=== PATIENT | female | born 1965 | race Caucasian/White ===

== ENCOUNTER → 2016-09-25 | Outpatient (CLI) | payer OTHER ==
[2015-04-15 11:07] VITALS: BP 120/75
[~2016-09-25] MED LIST: HYDR-971 PO; IBUP200T43 PO
--- NOTE | 2016-09-25 15:40 | RAD ---
DATE: 09/25/2016 EXAM: MAMMO TASHIA DIAG LT, BREAST LEFT HISTORY: Follow-up left breast nodules. COMPARISON: 05/02/2016 This study was interpreted with the benefit of Computerized Aided Detection (CAD). FINDINGS: MLO and CC digital mammograms of the left breast were obtained. Additionally digital breast tomosynthesis in the CC and MLO projections of the left breast was performed. Comparison study is dated 05/02/2016. The left breast parenchyma is heterogeneously dense which can obscure a lesion on mammography (breast density code C). The 1.5 cm mass within the upper outer quadrant left breast has decreased in size on today's study. A 8 mm mass is seen within the retroareolar region left breast which is unchanged. No new dominant mass is seen. A real-time ultrasound examination of the left breast performed at the 3:00 position and the retroareolar region was performed. Multiple images were obtained. Comparison study is dated 05/02/2016. A 8 mm simple cyst is seen within the retroareolar region of the left breast which is unchanged. A 3 mm simple cyst is seen at the 3:00 position which has decreased in size since previous examination where it measure 1.3 cm in size. No solid mass is seen. IMPRESSION: Simple cysts are seen within the left breast. The cyst at the 3:00 position has decreased in size significantly since the previous examination. No solid mass is seen. I would recharacterize the patient's mammograms as a BI-RADS Category 2 benign findings with a recommendation for routine yearly screening mammography for follow-up. BI-RADS CATEGORY: 1 NEGATIVE RECOMMENDED FOLLOW-UP: 12M 12 MONTH FOLLOW-UP PQRS compliance statement: Patient information was entered into a reminder system with a target due date 05/02/2017 for the next mammogram. Mammography is a sensitive method for finding small breast cancers, but it does not detect them all and is not a substitute for careful clinical examination. A negative mammogram does not negate a clinically suspicious finding and should not result in delay in biopsying a clinically suspicious abnormality. "Our facility is accredited by the [employer] Mammography [employer]."
== END | disposition home or self-care (01) ==
LOC: MAMMO 13:19
PROVIDERS: ATTEND Family Medicine
DX: N63 Unspecified lump in breast (principal)
CPT/HCPCS: 76641; G0206; G0279; 77061; 77065

== ENCOUNTER → 2018-03-12 | Outpatient (CLI) | payer OTHER ==
[2015-04-15 11:07] VITALS: BP 120/75
[~2018-03-12] MED LIST changes: +HYDR-3165 PO; -HYDR-971 PO; -IBUP200T43 PO; +IBUP200T44 PO
--- NOTE | 2018-03-12 10:32 | RAD ---
DATE: 03/12/2018 EXAM: MAMMO TASHIA ROBERT BENAVIDES, BREAST BILATERAL HISTORY: Breast pain COMPARISON: 09/25/2016, 05/02/2016 This study was interpreted with the benefit of Computerized Aided Detection (CAD). Breast Density: HETERO The breast parenchyma is heterogenously dense, which could reduce sensitivity of mammography. Breast parenchyma level C. Findings: 2-D and 3-D tomosynthesis imaging was performed in CC and MLO projections. A small retroareolar nodule seen on the previous study has regressed. No new or enlarging breast densities are seen. No spiculated mass or architectural distortion is evident. No suspicious microcalcifications are seen. Left breast ultrasound, 03/12/2018: History: Left lateral breast pain A targeted ultrasound exam of the lateral aspect of the left breast was performed to include the area of reported pain. Heterogeneous fibroglandular shadows are present. At the 7:00 location there is a 5 mm simple cyst. No solid mass or other unusual fluid collection is seen. IMPRESSION: 1. There is no mammographic evidence of malignancy in either breast. 2. The targeted ultrasound exam of the lateral left breast demonstrates a simple cyst. BI-RADS CATEGORY: 2 BENIGN FINDING(S) RECOMMENDED FOLLOW-UP: 12M 12 MONTH FOLLOW-UP PQRS compliance statement: Patient information was entered into a reminder system with a target due date for the next mammogram. Mammography is a sensitive method for finding small breast cancers, but it does not detect them all and is not a substitute for careful clinical examination. A negative mammogram does not negate a clinically suspicious finding and should not result in delay in biopsying a clinically suspicious abnormality. "Our facility is accredited by the [employer] Mammography [employer]."
== END | disposition home or self-care (01) ==
LOC: MAMMO 08:20
PROVIDERS: ATTEND Family Medicine
DX: N60.02 Solitary cyst of left breast (principal)
CPT/HCPCS: 76641; 77066; G0279; 77062

== ENCOUNTER 2020-12-10 09:04 | Emergency (ER) | payer OTHER ==
[~2020-12-10] VITALS: Ht 165.1 cm; Wt 63.4 kg
[2020-12-10 09:04] VITALS: BP 132/78
--- NOTE | 2020-12-10 09:26 | PHYS DOC ---
Past History Past Medical History: Arthritis, Asthma, COPD Past Surgical History: Appendectomy, Hysterectomy, Knee Replacement Smoking: Non-smoker Alcohol Use: None Drug Use: None General Adult EDM: Chief Complaint: ABDOMINAL PAIN HPI: HPI: Patient is a 55-year-old female presenting from urgent care for left lower quadrant pain. Patient states she has had the pain for 2 days is gotten worse this morning. Describes the pain as sharp and occasionally radiates to the right. Patient notes she has also had loose greenish stools. Denies any melena or bloody stools. Denies any fevers. Has had these pains occasionally over the past 2 years. Not had a Covid vaccines. Has a history of RA and takes methotrexate Review of Systems: Review of Systems: All other systems within normal limits except for as noted in the HPI Allergies: Allergies: Allergies Coded Allergies Type Severity Reaction Last Updated Verified No Known Drug Allergies 04/15/15 No Physical Exam: PE: Constitutional: Well developed, well nourished, no acute distress, non-toxic appearance. [] HENT: Normocephalic, atraumatic, bilateral external ears normal, nose normal. [] Eyes: PERRLA, conjunctiva normal, no discharge. [] Neck: No rigidity, supple, no stridor. [] Cardiovascular: Regular rate and rhythm, brisk cap refill [] Lungs & Thorax: Non labored symmetric respirations, no tachypnea or respiratory distress [] Abdomen: Soft, nondistended, pain and guarding in left lower quadrant. No Rovsing or rebound. Skin: Warm, dry, no erythema, no rash. [] Back: Unremarkable Extremities: No deformities, range of motion grossly intact, no lower extremity edema [] Neurologic: Alert and oriented X 3, no focal deficits noted. [] Psychologic: Affect normal, judgement normal, mood normal. [] Current Patient Data: Vital Signs: Vital Signs Date Time Temp Pulse Resp B/P (MAP) Pulse Ox O2 Delivery O2 Flow Rate FiO2 12/10/20 09:04 98.0 54 14 132/78 (96) 98 Room Air EKG: EKG: [] Radiology/Procedures: Radiology/Procedures: [address] [address] IMAGING REPORT Signed PATIENT: ESTHER HURT MACCOUNT: [id number] : 1965 LOCATION: ER AGE: 55 SEX: F EXAM STATUS: REG ER ORD. PHYSICIAN: EITAN ABREU MD REASON: LLQ PAIN THAT RADIATES TO RLQ, LAST NORMAL BM X2 DAYS AGO PROCEDURE: CT ABD PELV W/ IV CONTRST ONLY CT STUDY OF THE ABDOMEN AND PELVIS WITH CONTRAST Clinical indications: Left lower quadrant abdominal pain that radiates to the right lower quadrant. Last normal bowel movement 2 days ago. TECHNIQUE: After IV infusion of 75 cc of Omnipaque 300, helical CT scanning of the abdomen and pelvis was performed. GI contrast was not administered. This may decrease the sensitivity to detect GI tract pathology. PQRS COMPLIANCE STATEMENT One or more of the following individualized dose reduction techniques were utilized for this study: 1. Automated exposure control 2. Adjustment of the mA and/or kV according to patient size 3. Use of iterative reconstruction technique COMPARISON: None available. FINDINGS: No hepatic mass is seen. Spleen is not enlarged. Pancreas and gallbladder are normal. No extrahepatic biliary ductal dilatation is seen. No adrenal mass is apparent. Both kidneys are normal without hydronephrosis or hydroureter. No urinary tract stone is apparent. Urinary bladder wall is smooth. Uterus is surgically absent. No focal aneurysmal dilatation of the abdominal aorta is seen. No enlarged abdominal or pelvic lymphadenopathy is seen. No obstructive bowel pattern is seen. No free intraperitoneal air or free fluid or mesenteric edema is seen. Surgical clips are seen in the base of cecum consistent with a previous appendectomy. Diffuse wall thickening of the colon is seen. The terminal ileum is unremarkable. No lung base consolidation is seen. T here is a small well-defined lucent lesion of L1 vertebral body with internal striations consistent with a hemangioma. IMPRESSION: There is diffuse colonic wall thickening which may be due to lack of distention but may be seen with a diffuse colitis if there are clinical findings of such. No other acute abnormality. Electronically signed by: Matilda Horan MD (12/10/2020 10:19 AM) [id number] DICTATED AND SIGNED BY: MATILDA HORAN MD DATE: 12/10/20 1009 CC: EITAN ABREU MD; NON,STAFF ~MTH0 0 [] Heart Score: C/O Chest Pain: No Risk Factors: Risk Factors: DM, Current or recent (<one month) smoker, HTN, HLP, family history of CAD, obesity. Risk Scores: Score 0 - 3: 2.5% MACE over next 6 weeks - Discharge Home Score 4 - 6: 20.3% MACE over next 6 weeks - Admit for Clinical Observation Score 7 - 10: 72.7% MACE over next 6 weeks - Early Invasive Strategies Course & Med Decision Making: Course & Med Decision Making Pertinent Labs and Imaging studies reviewed. (See chart for details) [] Dragon Disclaimer: Dragon Disclaimer: This electronic medical record was generated, in whole or in part, using a voice recognition dictation system. Departure Departure: Impression: Primary Impression: Colitis Disposition: HOME / SELF CARE / HOMELESS Condition: STABLE Referrals: NON,STAFF (PCP) Patient Instructions: Colitis Scripts Dicyclomine Hcl (DICYCLOMINE HCL) 20 Mg Tablet 1 TAB PO TID PRN for ABDOMINAL CRAMPS, #20 TAB 1 Refill Prov: EITAN ABREU MD 12/10/20 EITAN ABREU MD Dec 10, 2020 09:26
[2020-12-10] MEDS ORDERED: IOHEXOL 300 MG/ML 75 ML VIAL. IV ONE (09:30)
[2020-12-10] MEDS ORDERED: CONTRAST GIVEN. MC PRN (09:45)
[2020-12-10 10:02] LABS: BASO % 0 % (0-3); EOS # 0.1 x10^3/uL (0.0-0.7); EOS % 2 % (0-3); HEMATOCRIT 37.9 % (36.0-47.0); HEMOGLOBIN 12.9 g/dL (12.0-15.5); LYMPH # 0.7 x10^3/uL (1.0-4.8); LYMPH % 13 % (24-48); MEAN CORPUSCULAR HEMOGLOBIN 34 pg (25-35); MEAN CORPUSCULAR HGB CONC 34 g/dL (31-37); MEAN CORPUSCULAR VOLUME 101 fL (79-100); MONO # 0.6 x10^3/uL (0.0-1.1); MONO % 12 % (0-9); NEUT # 3.9 x10^3uL (1.8-7.7); NEUT % 73 % (31-73); PLATELET COUNT 170 x10^3/uL (140-400); RED BLOOD COUNT 3.74 x10^6/uL (3.50-5.40); RED CELL DISTRIBUTION WIDTH 15.2 % (11.5-14.5); WHITE BLOOD COUNT 5.4 x10^3/uL (4.0-11.0)
[2020-12-10 10:07] LABS: BILIRUBIN,URINE NEG (NEG); CLARITY,URINE CLEAR; COLOR,URINE YELLOW; GLUCOSE,URINE NEG (NEG); NITRITE,URINE NEG (NEG); UROBILINOGEN,URINE 0.2 mg/dL (0.2 mg/dL)
[2020-12-10 10:10] LABS: BACTERIA,URINE 0 /HPF (0-FEW); CALCIUM 9.4 mg/dL (8.5-10.1); CREATININE 0.8 mg/dL (0.6-1.0); POTASSIUM 3.8 mmol/L (3.5-5.1); RBC,URINE OCC /HPF (0-2); SQUAMOUS EPITHELIAL CELL,UR MANY /LPF; WBC,URINE OCC /HPF (0-4)
[2020-12-10 10:13] LABS: ALBUMIN 3.9 g/dL (3.4-5.0); ALBUMIN/GLOBULIN RATIO 1.3 (1.0-1.7); TOTAL BILIRUBIN 0.8 mg/dL (0.2-1.0); TOTAL PROTEIN 6.9 g/dL (6.4-8.2)
--- NOTE | 2020-12-10 10:21 | RAD ---
CT STUDY OF THE ABDOMEN AND PELVIS WITH CONTRAST Clinical indications: Left lower quadrant abdominal pain that radiates to the right lower quadrant. L ast normal bowel movement 2 days ago. TECHNIQUE: After IV infusion of 75 cc of Omnipaque 300, helical CT scanning of the abdomen and pelvis was performed. GI contrast was not administered. This may decrease the sensitivity to detect GI trac t pathology. PQRS COMPLIANCE STATEMENT One or more of the following individualized dose reduction techniques were utilized for this study: 1. Automated exposure control 2. Adjustment of the mA and/or kV according to patient size 3. Use of iterative reconstruction technique COMPARISON: None available. FINDINGS: No hepatic mass is seen. Spleen is not enlarged. Pancreas and gallbladder are normal. No ex trahepatic biliary ductal dilatation is seen. No adrenal mass is apparent. Both kidneys are normal wi thout hydronephrosis or hydroureter. No urinary tract stone is apparent. Urinary bladder wall is smoo th. Uterus is surgically absent. No focal aneurysmal dilatation of the abdominal aorta is seen. No en larged abdominal or pelvic lymphadenopathy is seen. No obstructive bowel pattern is seen. No free int raperitoneal air or free fluid or mesenteric edema is seen. Surgical clips are seen in the base of c ecum consistent with a previous appendectomy. Diffuse wall thickening of the colon is seen. The termi nal ileum is unremarkable. No lung base consolidation is seen. There is a small well-defined lucent l esion of L1 vertebral body with internal striations consistent with a hemangioma. IMPRESSION: There is diffuse colonic wall thickening which may be due to lack of distention but may b e seen with a diffuse colitis if there are clinical findings of such. No other acute abnormality. Electronically signed by: Zachariah Horan MD (12/10/2020 10:19 AM) [id number]
[2020-12-10] MEDS ORDERED: DICY20TA PO (10:36)
== END 2020-12-10 10:42 | disposition home or self-care (01) ==
LOC: ER 09:04
DX: K52.9 Noninfective gastroenteritis and colitis, unspecified (principal); M19.90 Unspecified osteoarthritis, unspecified site; J44.9 Chronic obstructive pulmonary disease, unspecified; Z90.89 Acquired absence of other organs; Z90.710 Acquired absence of both cervix and uterus
CPT/HCPCS: 36415; 74177; 80053; 81001; 83690; 85025; 99285; Q9967